=== PATIENT | female | born 1970 | race Caucasian/White ===

== ENCOUNTER 2021-01-03 07:28 | Day surgery (SDC) | payer MEDICAID, SELFPAY ==
--- NOTE | 2020-12-25 11:28 | PCM.HP.BLA ---
History and Physical Date of Admission: 01/03/21 HPI: The patient is a 50 year old female presenting for pre-operative visit. She is scheduled for laparoscopic-assisted vaginal hysterectomy with bilateral salpingectomy, for chronic pelvic pain, adenomyosis, and status post tubal ligation endometrial ablation pain syndrome. on January 03, 2021. Procedure discussed along with risks, benefits and complications. Other alternatives discussed for management. Consent form signed? Yes. ? ? PAST MEDICAL HISTORY PAST MEDICAL HISTORY Diagnosis Date ? Anxiety ? ? heart races ? asthma ? ? COPD (chronic obstructive pulmonary disease) (HCC) ? ? mass in lung ? Emphysema lung (HCC) ? ? ? PAST SURGICAL HISTORY PAST SURGICAL HISTORY Procedure Laterality Date ? BRAIN SURGERY HX ? ? ? COLONOSCOPY ? 05/11/2003 ? Normal colonoscopy ? HERNIA REPAIR HX ? 2013 ? double hernia, lower left ? NECK SURGERY HX ? ? ? THERMAL ENDOMETRIAL ABLATION ? 2019 ? novasure ? TUBAL LIGATION ? CURRENT MEDICATIONS Current Outpatient Medications Medication Sig Dispense Refill ? acetaminophen-codeine (TYLENOL-COD #2) 300-15 mg per tablet Take 1 tablet by mouth every 4 hours as needed. ? ? ? buPROPion XL (WELLBUTRIN XL) 150 mg 24 hr tablet Take 150 mg by mouth. ? ? ? buPROPion XL (WELLBUTRIN XL) 300 mg 24 hr tablet Take by mouth. TAKE ONE (1) TABLET BY MOUTH EVERY MORNING ? ? ? ondansetron (ZOFRAN) 4 mg tablet Take 1 (one) tablet (4 mg total) by mouth every 6 (six) hours as needed. ? ? ? erenumab-aooe (AIMOVIG AUTOINJECTOR SUBCUTANEOUS) Inject subcutaneously. ? ? ? SUMAtriptan (IMITREX) 6 mg/0.5 mL kit Inject 6 mg subcutaneously as needed. ? ? ? rizatriptan (MAXALT) 10 mg tablet Take 10 mg by mouth as needed. May repeat in 2 hours if needed ? ? ? nortriptyline (PAMELOR) 25 mg capsule Take 25 mg by mouth daily at bedtime. (Patient not taking: Reported on 12/19/2020 ) ? ? ? atorvastatin (LIPITOR) 10 mg tablet Take 10 mg by mouth once daily. ? ? ? topiramate (TOPAMAX) 100 mg tablet Take 100 mg by mouth twice daily. ? ? ? dicyclomine (BENTYL) 20 mg tablet Take 20 mg by mouth four times daily. (Patient not taking: Reported on 12/19/2020 ) ? ? ? MOMETASONE/FORMOTEROL (DULERA INHALATION) Inhale as instructed. ? ? ? montelukast (SINGULAIR) 10 mg tablet Take 10 mg by mouth daily at bedtime. ? ? ? GABAPENTIN ORAL Take 600 mg by mouth four times daily. ? ? ? baclofen (LIORESAL) 10 mg/ml liqd Take by mouth three times daily. (Patient not taking: Reported on 12/19/2020 ) ? ? ? loratadine(CLARITIN 10 MG TAB) Take one(1) tablet daily. ? 0 ? ALBUTEROL 90 MCG/ACTUATION AEROSOL INHALER Inhale one(1) - two(2) puffs four(4) times a day as needed for wheezing and shortness of breath. ? 0 ? No current facility-administered medications for this visit. ? ? ALLERGIES: Asa [Salicylates], Biaxin [Clarithromycin], Hayfever [Homeopathic Products], Ibuprofen, and Latex ? PERSONAL HISTORY: SOCIAL HISTORY Social History ? Tobacco Use ? Smoking status: Current Every Day Smoker ? ? Packs/day: 0.50 ? ? Years: 25.00 ? ? Pack years: 12.50 ? ? Types: Cigarettes ? Smokeless tobacco: Never Used Substance Use Topics ? Alcohol use: No ? Drug use: No ? FAMILY HISTORY: FAMILY HISTORY FAMILY HISTORY Problem Relation Age of Onset ? Diabetes Mother ? ? Hypertension Mother ? ? Thyroid Mother ? ? hyper ? Coronary Artery Disease Maternal Grandmother ? ? Cancer Sister ? ? colon, cervical ? ? REVIEW OF SYMPTOMS: GENERAL: denies fevers or chills ENDOCRINOLOGY: has not been on steroids Cardiology : denies palpitations or chest pain Respiratory: denies SOB or cough Hematology: denies history of prolonged bleeding or easy bruising or VTE Allergy: Denies history of personal or family history of allergy to anesthesia ? PHYSICAL EXAMINATION: ? VITALS: Last menstrual period 04/24/2015. ? GENERAL: The patient is well nourished, well hydrated in no acute distress. , The patient is oriented to time, place, and person. NECK: Supple. No lynphadenopathy, normal thyroid, no thyromegaly. LUNGS: Clear to auscultation bilaterally. no wheezes, rhonchi or rales HEART: Regular rate and rhythm, Normal heart sounds and No murmurs or gallops ? IMPRESSION: Chronic pelvic pain, adenomyosis, post ablation tubal ligation pain syndrome ? PLAN: The risks/benefits/alternatives and personal involved for the planned laparoscopic assisted vaginal hysterectomy with bilateral salpingectomy were reviewed with the patient. Her questions were answered to her satisfaction and she desires to proceed. Consent was signed. I reviewed with her postop instructions and expectations. ? ? I have reviewed and updated past medical and surgical history, medications and allergies This H&P was completed in my office on 12/21/20. Assessment & Plan Assessment/Plan (1) Adenomyosis: (2) Chronic pelvic pain in female: (3) Post endometrial ablation syndrome:
--- NOTE | 2021-01-02 10:15 | EKG12_ITS ---
Test Reason : PREOP Blood Pressure : / mmHG Vent. Rate : 084 BPM Atrial Rate : 084 BPM P-R Int : 148 ms QRS Dur : 094 ms QT Int : 366 ms P-R-T Axes : 059 084 061 degrees QTc Int : 432 ms Normal sinus rhythm Normal ECG Confirmed by JUSTINE IZAGUIRRE, SHERRY ([id number]), society editor DOROTHY RHODES ([id number]) on 01/03/2021 7:47:21 AM Referred By: Adela Purdy Confirmed By:SHERRY FLETCHER MD
[2021-01-03 07:56] LABS: Internal QC Validated? YES +Cl - CLEAR BKGD; Pregnancy, Urine Negative Negative
[2021-01-03 08:04] VITALS: BP 112/67; PULSE 103; RESP 18; TEMP 36.6; O2SAT 100; BMI 27.9
[2021-01-03] MEDS: Lactated Ringers 1,000 ML 40 ML IV (08:08)
[2021-01-03] MEDS: Gabapentin 600 MG Tablet PO (08:12)
[2021-01-03] MEDS: Phenazopyridine 95 MG Tablet 190 MG PO (08:12)
[2021-01-03] MEDS: Enoxaparin 40 MG/0.4 ML Syringe SC (08:13)
[2021-01-03] MEDS: Acetaminophen 500 MG Tablet 1000 MG PO (08:13)
[2021-01-03] MEDS: Scopolamine 1mg/72hr Patch 1 PATCH TD (08:13)
[2021-01-03 08:16] LABS: Bedside Glucose 68 mg/dL (70-110)
[2021-01-03 08:20] LABS: Hematocrit 42.9 % (37-47); Hemoglobin 13.7 g/dL (12.0-15.0); Mean Corp Hgb Conc 31.9 g/dL (32-36); Mean Corpuscular Hgb 32.5 pg (27.0-32.0); Mean Corpuscular Volume 101.7 fL (81-99); Mean Platelet Vol. 11.4 fl (6.2-12.0); Platelet Count 206 K/mm3 (150-450); RBC Distribution Width SD 52.6 fl (35.1-43.9); Red Blood Count 4.22 M/mm3 (4.2-5.4); White Blood Count 7.7 K/mm3 (4.4-11.0)
[2021-01-03 08:36] LABS: Anion Gap 7 (5-15); BUN 7 mg/dL (7-18); BUN/Creat Ratio 6.8 RATIO (10-20); Calcium,Total 9.2 mg/dL (8.5-10.1); Chloride 111 mmol/L (98-107); Creatinine, Serum 1.03 mg/dL (0.55-1.02); EST Glomerular Filtration Rate 60 mL/min (>60); Est Glom Filt Rate - Afr Amer 73 mL/min (>60); Estimated Creatinine Clearance 68.29 ml/min; Glucose 70 mg/dL (74-106); Magnesium 2.1 mg/dL (1.6-2.6); Potassium 3.6 mmol/L (3.5-5.1); Sodium Level 142 mmol/L (136-145)
[2021-01-03] MEDS: Cefazolin 2 GM in 0.9% Normal Saline 100 ML IV (09:46)
--- NOTE | 2021-01-03 09:50 | HYST_PTH ---
PATIENT: KAYLEY ARAGON LOC: [facility] [place] U#:[id number] AGE/SX: 50/F ROOM: RE01/03/[address]: Dr. Adela Purdy MD : 1970 BED: DIS: 01/03/2021 SPEC #: [id number] RECD: 01/03/21 13:03 STATUS: ELIANA WHITMORE #: [id number] CHARLES: 01/03/21 09:[address]: Adela Purdy DEPT: SURGICAL PATHOLOGY RECD BY: Stella Adam ENTERED: 01/04/21 09:00 SP TYPE: HYSTERECT OTHR DR: Dr. Farheen Hickman MD Tissues: Uterus, NOS Procedures: Surgery Specimen Level V HEADER OPERATION: ERAS, laparoscopic vaginal hysterectomy, salpingectomy PRE-OP DIAGNOSIS: Adenomyosis, chronic pelvic pain, post endometrial ablation syndrome TISSUE SUBMITTED: Uterus, bilateral fallopian tubes MICROSCOPIC DIAGNOSIS Uterus and bilateral fallopian tube, vaginal hysterectomy and bilateral salpingectomy: Cervix ? chronic cystic cervicitis and squamous metaplasia. Endometrium ? changes consistent with endometrial ablation. Myometrium ? intramural and submucosal leiomyomas (largest measuring 0.8 cm in greatest dimension). Bilateral fallopian tubes - no pathologic diagnosis. SJ:jong 01/07/2021 MICROSCOPIC DESCRIPTION Slides are reviewed. GROSS DESCRIPTION Received in fixative is one container labeled with the patient's name and designated uterus, bilateral fallopian tubes. The specimen consists of a hysterectomy specimen consisting of uterus with cervix and detached bilateral fallopian tubes. The uterus with cervix weighs 54 gm and measures 7 x 5 x 3 cm. The?serosal surface is ragged. Two subserosal nodules are noted. The ectocervical mucosa is unremarkable. The external os is slit-like in contour. The endocervical canal measures 2 cm in length and the endocervical mucosa is tavera, glistening and unremarkable. The endometrial cavity is narrow and measures 2.5 cm in length and up to 0.5 cm in width. The endometrium is tavera, glistening without any mass lesion and measures <0.1 cm in thickness. Sections of the endometrial wall reveal a focal area of hemorrhage extending up to the serosal surface and may represent previous postsurgical artifact. Sections of the uterine wall reveal one submucosal nodular mass measuring 0.8 cm in greatest dimension and two subserosal nodular masses, each measuring 0.5 cm in greatest dimension. The uterine wall measures up to 2 cm in thickness. The fallopian tubes are not identified as right or left and measures 3 cm in length and 0.5 cm in diameter and 4 cm in length and 0.5 cm in diameter. The fimbrial end is identified. Sections reveal unremarkable cut surfaces. Wet Process Head Miller sections are submitted in nine cassettes as follows: 1 - anterior cervix, 2 - posterior cervix, 3 & 4 - anterior uterine wall, 5 & 6 - posterior uterine wall, 7 - nodular masses, 8 - one fallopian tube, 9 - second fallopian tube. / BENJAMIN:jong 01/04/21 TC:1 CPT: 95046
[2021-01-03] MEDS: Lidocaine 1% /Epi 1:100 (20ml) 20 ML Vial (10:50)
--- NOTE | 2021-01-03 11:21 | OP.PCM_ITS ---
Problems Associated Problem List Diagnoses (1) Adenomyosis: (2) Chronic pelvic pain in female: (3) Post endometrial ablation syndrome: Report of Operation Date of Procedure: 01/03/21 Pre-Operative Diagnosis: adenomyosis, chronic pelvic pain, post endometrial ablation syndrome Post-Operative Diagnosis: same Surgery/Procedure Performed:: LAVH, bilateral salpignectomy and cystoscopy Description of Surgical Findings:: Small uterus, normal tubes with Filshie clips and ovaries. Normal pelvis and appendix Surgeon: Adela Purdy meat lugger: Malia Collins meat lugger: Olivia Cole Type of Anesthesia: General Anesthesiologist: Yoandy Mccabe Special Medications: none Specimen's removed: uterus, cervix, bilateral fallopian tubes Drains: none Estimated Blood Loss (mL): 30 Fluids Replaced: 1400 Description of Procedure: The patient was taken to the operating room where she was prepped and draped in the dorsal lithotomy position. Her arms were tucked to the side and padded and her legs were placed in the yellowfin stirrups. Care was taken to ensure that she was placed in a neurologically safe and neutral position. A weighted speculum was placed in the vagina and the anterior lip of the cervix was grasped with a single-tooth tenaculum. The uterus sounded to 7 centimeters. The ZUMI uterine manipulator was placed and secured. The Lo catheter was placed to straight drain. An incidental uterine perforation was noted. This was due to her previous ablation and was then alteplase and the manipulator and did not cause any complications or injury. Attention was turned to the abdominal portion of the case. Before skin incisions were made they were infiltrated with 0.5% Marcaine solution for local anesthetic. A 5 mm intraumbilical incision was made and while tenting the anterior abdominal wall up with towel clamps a 5 mm blade less trocar and sleeve were advanced directly into the peritoneal cavity. Peritoneal placement was confirmed with the laparoscope the pneumoperitoneum was created, and the underlying abdominal contents were intact. The patient was placed in Trendelenburg and the above findings were noted. Right and left lateral 5 mm trochars were placed under direct visualization without difficulty. The antimesenteric portion of the tube was clamped sealed and transected serially on both sides with the LigaSure device. The round ligaments were clamped sealed and transected and a window was made in the peritoneum. There were some small adhesions of some epiploica to the Filshie clip on the left side. These were taken down. The utero-ovarian ligaments were then clamped, sealed and transected with the LigaSure device and the pedicles were hemostatic The bladder flap was dissected down with the LigaSure device and blunt dissection and the uterine arteries were then skeletonized. The uterine arteries were clamped, sealed and transected on both sides with the LigaSure device. At this point the pedicles were all examined and found to be hemostatic. Attention was turned to the vaginal portion of the case. 1% lidocaine with dilute epinephrine solution was used to infiltrate the anterior vaginal epithelium over the cervix. An incision was made from 3 to 9:00 across the anterior vaginal epithelium and the vaginal epithelium was dissected back with blunt sharp dissection. The anterior colpotomy incision was made. The vaginal epithelium on each side of the cervix at 3 and 9:00 was clamped, transected and suture ligated. The next pedicle contained the anterior peritoneum and part of the cardinal ligament. The pedicle was was clamped with a Michael clamp, transected and suture-ligated. Hemostasis was noted. The uterine fundus was brought through the anterior colpotomy incision. The uterosacral ligaments and vaginal cuff were secured with Michael clamps. The pedicles were transected. The uterus and cervix were then amputated and removed. The pedicles were secured with an 0 Vicryl suture. At this point, the pedicles were all examined and hemostasis was assured. A poihae-ch-ulzwy was needed in the midline and the vaginal cuff between the uterosacrals to tack the peritoneum down to the posterior vaginal wall. The vaginal cuff was then closed in a horizontal fashion with interrupted 0 Vicryl [id number] sutures. Care was taken to secure the vagina to the uterosacral ligaments. The Lo catheter was removed and a cystoscopy was performed by Dr. Barrow. The bladder appeared normal and was intact. Both ureteral orifices were noted and both ureteral jets were seen. The cystoscope was removed and the Lo catheter was placed back to straight drain. A sponge stick was placed in the vagina to help place traction against the vaginal cuff. The laparoscope was reinserted into the abdomen and the pneumoperitoneum was re- created. The pedicles were reexamined and found to be hemostatic. The vaginal cuff was hemostatic. The right and left lateral ports were taken out and the sites were hemostatic. The pneumoperitoneum was released and even under low pressure there was no bleeding of any of the pedicles are vaginal cuff. The umbilical port was removed. The umbilical skin incisions were closed with Monocryl suture and skin glue by. The vaginal instruments were removed by me and a vaginal sweep was completed by me. The surgery was performed by me with assistance other than the portions dictated as above. Dr. Barrow provided tissue manipulation, retraction and camera gu idance during the surgery there were no qualified residents available for this procedure. All sponge lap and needle counts were correct and the patient was transferred to the recovery room in stable condition. Grafts/Implants Used: none Procedure Start Time: 10:09 Procedure Stop Time: 11:12 Complications none Admit VTE Documentation VTE Present on Admission: No VTE Mechan Device Prophylaxis: SCD's VTE Pharm Prophylaxis ordered?: Yes
[2021-01-03 11:23] VITALS: BP 112/67; BP 94/55; PULSE 69; RESP 14; TEMP 36.7; O2SAT 100
--- NOTE | 2021-01-03 11:25 | DCINST_ITS ---
Discharge Instructions Activity May resume sexual activity in: 6-8 weeks and - (Nothing in your vagina for 6 weeks. No vaginal or anal intercourse for 6-8 weeks) Dressing / Incision Cleanse incision/area with: Soap & Water and - (Your incisions have skin glue, it can get wet, leave the glue on until it falls off. ) Follow Up Care Please Follow Up With: Adela Purdy MD When: With my office in 1-2 and 6 weeks or as needed. [phone] Test Results: Test results from this visit will be discussed in further detail at your follow-up appointment, if applicable. Discharge Plan Admission Primary Reason for Your Visit: hysterectomy Attending Provider: Adela Purdy Primary Care Provider: Farheen Hickman Instructions Patient Instructions: Hysterectomy Vaginal Dc Discharge Orders/Prescriptions Prescriptions: New docusate sodium [DOK] 100 MG capsule 100 mg PO BID PRN PRN (Reason: constipation) Qty: 60 RF: 1 oxycodone 5 MG tablet 5 mg PO Q6H PRN PRN (Reason: severe pain) 7 Days Qty: 20 RF: 0 Continued gabapentin 600 mg Tablet 600 mg PO 4X/DAY RF: 0 atorvastatin 10 mg Tablet 10 mg PO QHS RF: 0 ondansetron HCl [Zofran] 4 mg Tablet 4 mg PO Q6H PRN (Reason: Nausea) RF: 0 rizatriptan 10 mg Tablet 10 mg PO Q2H PRN (Reason: MIGRAINES) RF: 0 montelukast [Singulair] 10 mg Tablet 10 mg PO DAILY RF: 0 albuterol sulfate 90 mcg/actuation Hfa Aerosol Inhaler 1 inh INHALATION Q6H PRN (Reason: SOB) RF: 0 topiramate [Topamax] 100 mg Tablet 300 mg PO TID RF: 0 fluticasone propionate 50 mcg/actuation [place],Suspension 1 spray INTRANASAL BID RF: 0 Dulera 200-5 mcg/actuation Hfa Aerosol Inhaler 2 puff INHALATION BID RF: 0 bupropion HCl 450 mg Tablet Extended Release 24 Hr 450 mg PO DAILY RF: 0 Aimovig Autoinjector 70 mg/mL Auto-Injector 70 mg SUBCUT QMONTH RF: 0 Held acetaminophen-codeine 300-15 mg Tablet 1 tab PO TID RF: 0 Hold Instructions: Resume on 01/09/21. Referrals / Follow Up: Farheen Hickman MD [Primary Care Provider] - Disposition Disposition (needs filled in before D/C Order can be placed): Home, Self Care
[2021-01-03 11:30] VITALS: BP 112/67; BP 93/46; PULSE 61; RESP 12; O2SAT 100
[2021-01-03 11:45] VITALS: BP 112/67; BP 91/66; PULSE 63; RESP 20; O2SAT 100
[2021-01-03 12:00] VITALS: BP 112/67; BP 92/66; PULSE 62; RESP 16; TEMP 36.3; O2SAT 100
[2021-01-03] MEDS: oxyCODONE 5 MG Tablet PO (12:36)
[2021-01-03 13:18] VITALS: BP 112/67; BP 93/63; PULSE 63; RESP 18; TEMP 36.1; O2SAT 100
== END 2021-01-03 13:21 | disposition home or self-care (01) ==
LOC: SDC 07:29 → AC 07:29
PROVIDERS: Anesthesiology; PCP Internal Medicine; Referring Provider Obstetrics & Gynecology; Visit Provider Obstetrics & Gynecology
PROC: 0UT9FZZ Resection of Uterus, Via Natural or Artificial Opening With Percutaneous Endoscopic Assistance (ICD-10-PCS; CPT 58552; principal; 2021-01-03 09:25)
DX: N80.0 Endometriosis of uterus (principal); N99.85 Post endometrial ablation syndrome; N72 Inflammatory disease of cervix uteri; D25.1 Intramural leiomyoma of uterus; D25.0 Submucous leiomyoma of uterus; G89.29 Other chronic pain; J43.9 Emphysema, unspecified; E78.00 Pure hypercholesterolemia, unspecified; M19.90 Unspecified osteoarthritis, unspecified site; F31.9 Bipolar disorder, unspecified; F41.9 Anxiety disorder, unspecified; F17.210 Nicotine dependence, cigarettes, uncomplicated; Z79.899 Other long term (current) drug therapy; Z20.822 Contact with and (suspected) exposure to COVID-19
CPT/HCPCS: 00944; 58552; 80048; 81025; 82962; 83735; 85027; 86850; 86900; 86901; 87426; 88307; 93005; C9803; J7120; J2405